=== PATIENT | female | born 1970 | race Caucasian/White ===

== ENCOUNTER 2016-07-13 18:51 | Emergency (ER) | payer OTHER ==
[2016-07-13 19:53] VITALS: BP 141/67
--- NOTE | 2016-07-13 21:09 | UC ---
Eye Complaint HPI - HPI Summary HPI Summary: The patient comes in today for: 1. Eye itching (right worse than left): Onset: STarted this morning--she woke up with it. Palliative/provocative: Warm compresses make it feel better. Quality: Feels dry. Region: Both eyes. Severity: 4/10 Time: Constant Associated symptoms: Vision: No problem. Event: No FB event resulting in focal, FB sensation. Previous eye diseases: None. Contacts: None. Medications: None. * - History of Current Complaint Chief Complaint: UCEye Stated Complaint: EYE COMPLAINT Time Seen by Provider: 07/13/16 21:00 Hx Obtained From: Patient, Family/[employer] Hx Last Menstrual Period: 07/05/16 ?: No - Allergies/Home Medications Allergies/Adverse Reactions: Allergies Allergy/AdvReac Type Severity Reaction Status Date / Time Amoxicillin Allergy Hives Verified 07/13/16 19:53 Clarithromycin [From Biaxin] Allergy Hives Verified 07/13/16 19:53 Penicillins Allergy Hives Verified 07/13/16 19:53 Home Medications: Home Medications Cetirizine* [ZyrTEC*] 10 mg PO DAILY 07/13/16 [History Confirmed 07/13/16] Enalapril TAB* [Vasotec TAB*] 10 mg PO DAILY 07/13/16 [History Confirmed ] Insulin LISPRO* [HumaLOG*] 0 unit SUBCUT FS Q6 ICU 07/13/16 [History Confirmed 07/13/16] Levothyroxine TAB* [Synthroid TAB*] 125 mcg PO DAILY 07/13/16 [History Confirmed 07/13/16] Topiramate TAB(*) [Topamax(*)] 75 mg PO DAILY 07/13/16 [History Confirmed ] PMH/Surg Hx/FS Hx/Imm Hx Previously Healthy: No - Allergies. Endocrine History Of: Reports: Diabetes - Type 1, Thyroid Disease Denies: Hyperthyroidism, Hypothyroidism, Dyslipidemia Cardiovascular History Of: Reports: Hypertension Denies: Cardiac Disorders, Pacemaker/ICD, Myocardial Infarction, Congestive Heart Failure, Atrial Fibrillation, Deep Vein Thrombosis, Bleeding Disorders Respiratory History Of: Reports: Asthma - excerise induced Denies: COPD, Bronchitis, Pneumonia, Pulmonary Embolism GI/ History Of: Denies: Gastroesophageal Reflux, Ulcer, Gastrointestinal Bleed, Gall Bladder Disease, Kidney Stones, Diverticulitis, Renal Disease, Urosepsis Neurological History Of: Reports: Migraine Denies: TIA, CVA, Dementia, Seizures Psychological History Of: Denies: Anxiety, Depression, Bipolar Disorder, Schizophrenia, Post Traumatic Stress Disorder Cancer History Of: Denies: Lung Cancer, Colorectal Cancer, Breast Cancer, Prostate Cancer, Cervical Cancer Other History Of: Negative For: HIV, Hepatitis B, Hepatitis C, Anticoagulant Therapy - Surgical History Surgical History: Yes Surgery Procedure, Year, and Place: left shoulder. right shoulder. bilateral carpal tunnel. csection x3 - Family History Known Family History: Positive: Cardiac Disease, Hypertension, Diabetes - Social History Occupation: Unemployed Lives: With Family Alcohol Use: Rare Substance Use Type: None Smoking Status (MU): Never Smoked Tobacco Review of Systems Constitutional: Negative Skin: Negative Eyes: Negative ENT: Negative Respiratory: Negative Cardiovascular: Negative Gastrointestinal: Negative Genitourinary: Negative All Other Systems Reviewed And Are Negative: Yes Physical Exam Triage Information Reviewed: Yes Appearance: Well-Appearing, No Pain Distress, Well-Nourished Vital Signs: Initial Vital Signs Temp 97.6 F 07/13/16 19:47 Pulse 91 07/13/16 19:47 Resp 17 07/13/16 19:47 BP 141/67 07/13/16 19:47 Pulse Ox 99 07/13/16 19:47 Vital Signs Reviewed: Yes Eyes: Positive: Conjunctiva Clear. Negative: Discharge ENT: Positive: Hearing grossly normal. Negative: Pharyngeal erythema, Nasal congestion, Nasal drainage, TM bulging, TM dull, TM red, Tonsillar swelling, Tonsillar exudate Dental: Negative: Gross Decay/Caries @, Dental Fracture @ Neck: Positive: Supple, Nontender, No Lymphadenopathy. Negative: Nuchal Rigidity Respiratory: Positive: Lungs clear, No respiratory distress, No accessory muscle use. Negative: Crackles, Wheezing Cardiovascular: Positive: RRR, No Murmur Abdomen Description: Positive: Nontender, No Organomegaly, Soft. Negative: Distended, Guarding Musculoskeletal: Positive: Strength Intact, ROM Intact, No Edema Neurological: Positive: Alert, Muscle Tone Normal Psychological: Positive: Age Appropriate Behavior, Consolable Skin: Negative: rashes, breakdown Eye Complaint Course/Dx - Course Course Of Treatment: Patient was told that she can use antihistamine eye drops, but will prescribe ketorolac ophthamic. However[facility] .45% strength which is not covered by insurances. However, the 0.4% and the 0.5% strength is covered by insurance, but not offered by [facility]. - Differential Dx/Diagnosis Differential Diagnosis/HQI/PQRI: Conjunctivitis Provider Diagnoses: Allergic conjunctivitis Discharge - Discharge Plan Condition: Stable Disposition: HOME Patient Education Materials: Conjunctivitis (ED) Referrals: SARY Cordova [Primary Care Provider] - 1 Week (Please see your primary care provider in about a week to see how well you are doing. If you get worse, please be seen sooner.) Additional Instructions: Please get the ketorolac eye drops and used as needed.
== END 2016-07-13 21:23 | disposition home or self-care (01) ==
LOC: UCCORT 18:51
DX: H10.13 Acute atopic conjunctivitis, bilateral (principal); Z88.1 Allergy status to other antibiotic agents; Z88.0 Allergy status to penicillin; E10.9 Type 1 diabetes mellitus without complications; Z79.4 Long term (current) use of insulin; E07.9 Disorder of thyroid, unspecified; I10 Essential (primary) hypertension
CPT/HCPCS: 99202; G0463

== ENCOUNTER 2019-03-12 17:32 | Emergency (ER) | payer OTHER ==
[2019-03-12 18:16] VITALS: BP 152/69
--- NOTE | 2019-03-12 19:09 | UC ---
Skin Complaint HPI - HPI Summary HPI Summary: Patient is a 48yo female with IDDM presenting with for redness, warmth, and pain of skin on left lateral chest x2 days. States redness and pain have worsened. States she had a cyst two months back requiring antibiotics to cover MRSA. Patient also notes her sugars have been higher which occurs when she has infections. States she is unable to wear her bra because the area is so sore. Denies drainage from the area. Denies trauma or injury. Denies bleeding. Denies fever, chills, nausea, vomiting. Patient has been applying bacitracin ointment. - History of Current Complaint Chief Complaint: UCSkin Time Seen by Provider: 03/12/19 19:02 Stated Complaint: SKIN CONCERN Hx Obtained From: Patient Hx Last Menstrual Period: Mid- Onset/Duration: Gradual Onset, Lasting Days Current Severity: Severe Pain Intensity: 8 - Allergy/Home Medications Allergies/Adverse Reactions: Allergies Allergy/AdvReac Type Severity Reaction Status Date / Time amoxicillin Allergy Hives Verified 03/12/19 18:06 clarithromycin Allergy Hives Verified 03/12/19 18:06 Penicillins Allergy Hives Verified 03/12/19 18:06 Home Medications: Home Medications Albuterol HFA INHALER* [Ventolin HFA Inhaler*] 1 - 2 puff INH Q4H PRN 03/12/19 [ History Confirmed 03/12/19] Budesonide/Formote 160/4.5(NF) [Symbicort 160/4.5 (NF)] 2 puff INH BID 03/12/19 [History Confirmed 03/12/19] FLUoxetine CAP* [PROzac CAP*] 20 mg PO DAILY 03/12/19 [History Confirmed ] Gabapentin CAP(*) [Neurontin 300 CAP(*)] 300 mg PO BID 03/12/19 [History Confirmed 03/12/19] Levothyroxine TAB* [Synthroid TAB*] 112 mcg PO DAILY 03/12/19 [History Confirmed 03/12/19] PMH/Surg Hx/FS Hx/Imm Hx Endocrine History: Diabetes Other History Of: Negative For: HIV, Hepatitis B, Hepatitis C, Anticoagulant Therapy - Surgical History Surgical History: Yes Surgery Procedure, Year, and Place: left shoulder. right shoulder. bilateral carpal tunnel. csection x3 - Family History Known Family History: Positive: Cardiac Disease, Hypertension, Diabetes - Social History Alcohol Use: Occasionally Substance Use Type: None Smoking Status (MU): Former Smoker When Did the Patient Quit Smoking/Using Tobacco: 1995 Review of Systems All Other Systems Reviewed And Are Negative: Yes Constitutional: Positive: Negative. Negative: Fever, Chills Skin: Positive: Rash. Negative: Bruising Respiratory: Positive: Negative Cardiovascular: Positive: Negative Gastrointestinal: Positive: Negative. Negative: Vomiting, Nausea Musculoskeletal: Positive: Negative Neurological: Positive: Negative Physical Exam Triage Information Reviewed: Yes Appearance: Well-Appearing, No Pain Distress, Well-Nourished Vital Signs: Initial Vital Signs Temp 98 F 03/12/19 18:11 Pulse 98 03/12/19 18:11 Resp 20 03/12/19 18:11 BP 152/69 03/12/19 18:11 Pulse Ox 100 03/12/19 18:11 Vital Signs Reviewed: Yes Eyes: Positive: Conjunctiva Clear ENT: Positive: Hearing grossly normal Neck: Positive: Supple Respiratory Exam: Normal Respiratory: Positive: Lungs clear, Normal breath sounds, No respiratory distress Cardiovascular Exam: Normal Cardiovascular: Positive: RRR. Negative: Tachycardia, Bradycardia Neurological: Positive: Alert Psychological: Positive: Age Appropriate Behavior Skin: Positive: Other - approx. 7cm area of warmth and erythema with central induration noted beneath L axillary region. no drainage or fluctuance. tender to palpation Course/Dx - Course Course Of Treatment: Patient VS normal and in no pain distress. Educated patient on cellulitis. I treated with doxycycline for cellulitis. Outline was drawn around current cellulitis. Instructed patient to go to the emergency room if redness increases significantly, or she experiences other worsening symptoms. Instructed to follow up with PCP as soon as possible for recheck skin. Patient voiced understanding and agreed with treatment plan. - Diagnoses Provider Diagnosis: Cellulitis Discharge ED - Sign-Out/Discharge Documenting (check all that apply): Patient Departure All imaging exams completed and their final reports reviewed: No Studies - Discharge Plan Condition: Stable Disposition: HOME Prescriptions: DOXYcycline CAP(*) [DOXYcycline 100MG CAP(*)] 100 mg PO BID #14 cap Patient Education Materials: Cellulitis (ED) Referrals: Sakshi Wells MD [Primary Care Provider] - As Soon As Possible Additional Instructions: As discussed, take Doxycycline as prescribed for the treatment of your cellulitis. Keep the area clean and dry. Follow up with your primary care physician as soon as possible for recheck of your infection. Go to the emergency room if you experience fever, increasing redness and warmth to the area, drainage, or nausea and vomiting. - Billing Disposition and Condition Condition: STABLE Disposition: Home
== END 2019-03-12 19:29 | disposition home or self-care (01) ==
LOC: UCCORT 17:32
DX: L03.112 Cellulitis of left axilla (principal); E11.9 Type 2 diabetes mellitus without complications; Z88.0 Allergy status to penicillin; Z88.1 Allergy status to other antibiotic agents; Z87.891 Personal history of nicotine dependence
CPT/HCPCS: 99212; G0463